=== PATIENT | female | born 1980 | race Caucasian/White ===

== ENCOUNTER 2020-07-26 15:44 | Emergency (ER) | payer MEDICAID ==
[~2020-07-26] VITALS: Ht 162.6 cm; Wt 180.0 kg
[2020-07-26 17:20] LABS: BASO % 1 % (0-3); EOS # 0.1 x10^3/uL (0.0-0.7); EOS % 2 % (0-3); HEMATOCRIT 37.3 % (36.0-47.0); HEMOGLOBIN 12.3 g/dL (12.0-15.5); LYMPH # 2.3 x10^3/uL (1.0-4.8); LYMPH % 37 % (24-48); MEAN CORPUSCULAR HEMOGLOBIN 30 pg (25-35); MEAN CORPUSCULAR HGB CONC 33 g/dL (31-37); MEAN CORPUSCULAR VOLUME 90 fL (79-100); MONO # 0.4 x10^3/uL (0.0-1.1); MONO % 7 % (0-9); NEUT # 3.4 x10^3/uL (1.8-7.7); NEUT % 54 % (31-73); PLATELET COUNT 198 x10^3/uL (140-400); RED BLOOD COUNT 4.15 x10^6/uL (3.50-5.40); RED CELL DISTRIBUTION WIDTH 16.2 % (11.5-14.5); WHITE BLOOD COUNT 6.2 x10^3/uL (4.0-11.0)
[2020-07-26 17:32] LABS: CALCIUM 8.5 mg/dL (8.5-10.1); CREATININE 0.8 mg/dL (0.6-1.0); POTASSIUM 3.7 mmol/L (3.5-5.1)
[2020-07-26 17:38] LABS: ALBUMIN 3.6 g/dL (3.4-5.0); ALBUMIN/GLOBULIN RATIO 1.2 (1.0-1.7); TOTAL BILIRUBIN 0.4 mg/dL (0.2-1.0); TOTAL PROTEIN 6.5 g/dL (6.4-8.2)
--- NOTE | 2020-07-26 18:00 | RAD ---
EXAMINATION: US BILATERAL LOWEREXTREMITY VENOUS DOPPLER, 07/26/2020 5:11 PM CLINICAL INDICATION: Swelling, history of DVT COMPARISON: None Available. PROCEDURE: Multiple grayscale, color Doppler and spectral Doppler sonographic images of both lower ex tremities were obtained. FINDINGS: Exam is limited by body habitus. There is no evidence of deep venous thrombosis in either l ower extremity. The bilateral common femoral, femoral and popliteal veins are echolucent with normal flow on color Doppler imaging. The veins are fully compressible and show normal phasicity and reactio n to augmentation. Limited evaluation of calf veins due to body habitus. IMPRESSION: No evidence of deep venous thrombosis in either lower extremity. Limited exam due to body habitus. Electronically signed by: Sravanthi Diez MD (07/26/2020 5:57 PM) [id number]
[2020-07-26] MEDS ORDERED: fentaNYL PF VIAL 100 MCG/2 ML VIAL IVP ONE (18:15)
[2020-07-26] MEDS ORDERED: NYST15CR2 TP (18:17)
[2020-07-26] MEDS ORDERED: GABA300C18 PO (18:17)
--- NOTE | 2020-07-26 18:18 | PHYS DOC ---
Past Medical History Past Medical History: DVT, Other Additional Past Medical Histor: Obesity, Lymphedema Past Surgical History: , Hysterectomy Additional Past Surgical Histo: gastric bypass Smoking Status: Never Smoker Alcohol Use: None General Adult EDM: Chief Complaint: LOWER EXTREMITY EDEMA HPI: HPI: Patient is a 39 year old female who presents with bilateral foot increased swelling and numbness in the bottom of her feet for the last couple of days. She is also noticed a rash that is reddened and burning behind her bilateral knees. She states is also itchy. She rates her pain at a 7 out of 10. Patient does have lymphedema but she states she slightly more swollen than before. She is not on any kind of blood thinner. She does have a history of DVTs, abdominal mass of which she supposed to have surgery next week, 2 C-sections, gastric bypass, hysterectomy. Patient denies chest pain, shortness of breath, abdominal pain, nausea, vomiting, diarrhea, headache, dizziness, vision change, focal weakness. Review of Systems: Review of Systems: Constitutional: Denies fever or chills. [] Eyes: Denies change in visual acuity. [] HENT: Denies nasal congestion or sore throat. [] Respiratory: Denies cough or shortness of breath. [] Cardiovascular: Denies chest pain or edema. [] GI: Denies abdominal pain, nausea, vomiting, bloody stools or diarrhea. [] : Denies dysuria. [] Musculoskeletal: Denies back pain or joint pain. + Bilateral back of knee pain [] Integument: Denies rash. +Bilateral back of knees yeast [] Neurologic: Denies headache, focal weakness or sensory changes. + Bottom of feet tingling and neuropathy pain [] Endocrine: Denies polyuria or polydipsia. [] Lymphatic: Denies swollen glands. [] Psychiatric: Denies depression or anxiety. [] Heart Score: C/O Chest Pain: No Risk Factors: Risk Factors: DM, Current or recent (<one month) smoker, HTN, HLP, family history of CAD, obesity. Risk Scores: Score 0 - 3: 2.5% MACE over next 6 weeks - Discharge Home Score 4 - 6: 20.3% MACE over next 6 weeks - Admit for Clinical Observation Score 7 - 10: 72.7% MACE over next 6 weeks - Early Invasive Strategies Allergies: Allergies: Allergies Coded Allergies Type Severity Reaction Last Updated Verified naproxen Allergy Mild Itching 07/26/20 Yes tramadol Allergy Mild Itching 07/26/20 Yes Physical Exam: PE: Constitutional: Well developed, well nourished, no acute distress, non-toxic appearance. [] HENT: Normocephalic, atraumatic, bilateral external ears normal, oropharynx moist, no oral exudates, nose normal. [] Eyes: PERRLA, EOMI, conjunctiva normal, no discharge. [] Neck: Normal range of motion, no tenderness, supple, no stridor. [] Cardiovascular:Heart rate regular rhythm, no murmur [] Lungs & Thorax: Bilateral breath sounds clear to auscultation [] Abdomen: Bowel sounds normal, soft, no tenderness, no masses, no pulsatile masses. [] Skin: Warm, dry, no erythema, no rash. Bilateral back of the knee yeast rash. [] Back: No tenderness, no CVA tenderness. [] Extremities: No tenderness, no cyanosis, no clubbing, ROM intact, bilateral feet and lower legs 2-3+ edema. Bilateral lower leg lymphedema present [] Neurologic: Alert and oriented X 3, normal motor function, normal sensory function, no focal deficits noted. [] Psychologic: Affect normal, judgement normal, mood normal. [] Current Patient Data: Labs: Laboratory Tests Test 07/26/20 17:00 White Blood Count 6.2 x10^3/uL (4.0-11.0) Red Blood Count 4.15 x10^6/uL (3.50-5.40) Hemoglobin 12.3 g/dL (12.0-15.5) Hematocrit 37.3 % (36.0-47.0) Mean Corpuscular Volume 90 fL (79-100) Mean Corpuscular Hemoglobin 30 pg (25-35) Mean Corpuscular Hemoglobin Concent 33 g/dL (31-37) Red Cell Distribution Width 16.2 % (11.5-14.5) H Platelet Count 198 x10^3/uL (140-400) Neutrophils (%) (Auto) 54 % (31-73) Lymphocytes (%) (Auto) 37 % (24-48) Monocytes (%) (Auto) 7 % (0-9) Eosinophils (%) (Auto) 2 % (0-3) Basophils (%) (Auto) 1 % (0-3) Neutrophils # (Auto) 3.4 x10^3/uL (1.8-7.7) Lymphocytes # (Auto) 2.3 x10^3/uL (1.0-4.8) Monocytes # (Auto) 0.4 x10^3/uL (0.0-1.1) Eosinophils # (Auto) 0.1 x10^3/uL (0.0-0.7) Basophils # (Auto) 0.0 x10^3/uL (0.0-0.2) Sodium Level 142 mmol/L (136-145) Potassium Level 3.7 mmol/L (3.5-5.1) Chloride Level 108 mmol/L (98-107) H Carbon Dioxide Level 29 mmol/L (21-32) Anion Gap 5 (6-14) L Blood Urea Nitrogen 7 mg/dL (7-20) Creatinine 0.8 mg/dL (0.6-1.0) Estimated GFR (Cockcroft-Gault) 79.0 BUN/Creatinine Ratio 9 (6-20) Glucose Level 96 mg/dL (70-99) Calcium Level 8.5 mg/dL (8.5-10.1) Magnesium Level 1.8 mg/dL (1.8-2.4) Total Bilirubin 0.4 mg/dL (0.2-1.0) Aspartate Amino Transferase (AST) 23 U/L (15-37) Alanine Aminotransferase (ALT) 26 U/L (14-59) Alkaline Phosphatase 84 U/L (46-116) HJ-Zmy-W-Type Natriuretic Peptide 218 pg/mL (0-124) H Total Protein 6.5 g/dL (6.4-8.2) Albumin 3.6 g/dL (3.4-5.0) Albumin/Globulin Ratio 1.2 (1.0-1.7) Laboratory Tests 07/26/20 17:00 Laboratory Tests 07/26/20 17:00 Vital Signs: Vital Signs Date Time Temp Pulse Resp B/P (MAP) Pulse Ox O2 Delivery O2 Flow Rate FiO2 07/26/20 16:40 98.3 80 18 159/93 (115) 98 Room Air 98.3 EKG: EKG: [] Radiology/Procedures: Radiology/Procedures: [] Impression: [facility] [id number] [place] [address] IMAGING REPORT Signed PATIENT: LUNA HORTON ACCOUNT: [id number] : 1980 LOCATION: ER AGE: 39 SEX: F EXAM STATUS: REG ER ORD. PHYSICIAN: VOLODYMYR KOO APRN REASON: swelling, previous dvt's PROCEDURE: VENOUS LOWER EXT BILATERAL EXAMINATION: US BILATERAL LOWEREXTREMITY VENOUS DOPPLER, 07/26/2020 5:11 PM CLINICAL INDICATION: Swelling, history of DVT COMPARISON: None Available. PROCEDURE: Multiple grayscale, color Doppler and spectral Doppler sonographic images of both lower extremities were obtained. FINDINGS: Exam is limited by body habitus. There is no evidence of deep venous thrombosis in either lower extremity. The bilateral common femoral, femoral and popliteal veins are echolucent with normal flow on color Doppler imaging. The veins are fully compressible and show normal phasicity and reaction to augmentation. Limited evaluation of calf veins due to body habitus. IMPRESSION: No evidence of deep venous thrombosis in either lower extremity. Limited exam due to body habitus. Electronically signed by: Sravanthi Diez MD (07/26/2020 5:57 PM) [id number] DICTATED and SIGNED BY: SRAVANTHI DIEZ MD DATE: 07/26/20 [id number] 0 Course & Med Decision Making: Course & Med Decision Making Pertinent Labs and Imaging studies reviewed. (See chart for details) See HPI. Bilateral lower leg lymphedema but patient states more swollen than usual. Legs are 2-3+ edema bilaterally. No calf tenderness. Skin pink warm and dry. No cellulitis or signs of infection. No weeping from the skin. Cap Re fill less than 2 seconds. Sensations intact. Vital signs within normal limits. Blood work unremarkable. Ultrasound of bilateral lower extremity shows no acute findings. Patient is to follow-up with her primary care provider. [] Dragon Disclaimer: Dragon Disclaimer: This electronic medical record was generated, in whole or in part, using a voice recognition dictation system. Departure Departure Impression: Primary Impression: Peripheral edema Additional Impressions: Skin yeast infection Neuropathic pain Disposition: HOME / SELF CARE / HOMELESS Condition: STABLE Referrals: UNKNOWN PCP NAME (PCP) Patient Instructions: Compression Stockings, Pain, Neuropathic, Peripheral Edema, Yeast Infection of the Skin, [id number] Additional Instructions: Follow-up with primary care provider. Take medication as prescribed and with food. Buy compression stockings for your legs to help with edema. Scripts Hydrocodone Bit/Acetaminophen (HYDROCODONE-APAP 5-325 ) 1 Tab Tablet 1 TAB PO PRN Q6HRS PRN for PAIN, #12 TAB 0 Refills Prov: VOLODYMYR KOO APRN 07/26/20 Nystatin/Triamcin (NYSTATIN-TRIAMCINOLONE CREAM) 15 Gm Cream..g. 1 STARR TP BID, #30 GM 1 Refill Prov: VOLODYMYR KOO APRN 07/26/20 VOLODYMYR KOO APRN Jul 26, 2020 18:18
[2020-07-26 18:46] LABS: BILIRUBIN,URINE NEGATIVE (NEG); CLARITY,URINE CLEAR; COLOR,URINE YELLOW; NITRITE,URINE NEGATIVE (NEG); PROTEIN,URINE NEGATIVE (NEG-TRACE)
[2020-07-26] MEDS ORDERED: HYDR-2761 PO (18:49)
[2020-07-26 18:55] LABS: BACTERIA,URINE FEW /HPF (0-FEW); RBC,URINE 0 /HPF (0-2)
[2020-07-26 19:33] VITALS: BP 146/68
== END 2020-07-26 19:40 | disposition home or self-care (01) ==
LOC: ER 15:44
DX: R60.0 Localized edema (principal); B37.2 Candidiasis of skin and nail; G57.93 Unspecified mononeuropathy of bilateral lower limbs; Z90.710 Acquired absence of both cervix and uterus; Z88.5 Allergy status to narcotic agent; Z88.6 Allergy status to analgesic agent
CPT/HCPCS: 36415; 80053; 81001; 83735; 83880; 85025; 87086; 93970; 96374; 99285; J3010